=== PATIENT | male | born 1990 | race Hispanic/Latino ===

== ENCOUNTER 2017-11-01 14:07 | Emergency (ER) | payer SELFPAY ==
[2017-11-01] MEDS ORDERED: KETOROLAC TROMETHAMINE 30MG/ML ONE (15:09)
== END 2017-11-01 15:47 | disposition home or self-care (01) ==
LOC: EDH 14:07
DX: S09.8XXA Other specified injuries of head, initial encounter (principal); F12.10 Cannabis abuse, uncomplicated; Z72.0 Tobacco use; X58.XXXA Exposure to other specified factors, initial encounter; Y93.89 Activity, other specified; Y92.488 Other paved roadways as the place of occurrence of the external cause; Y99.8 Other external cause status; J01.00 Acute maxillary sinusitis, unspecified
CPT/HCPCS: 70450; 96372; 99284; J1885

== ENCOUNTER 2020-01-06 04:00 | Emergency (ER) | payer OTHER ==
[2020-01-06] MEDS ORDERED: AMOXICILLIN/POTASSIUM CLAV 500-125 TABLET PO ONE (04:34)
[2020-01-06] MEDS ORDERED: ACETAMINOPHEN EXTRA STRENGTH 500 MG TABLET ONE (04:34)
[2020-01-06] MEDS ORDERED: IBUPROFEN 400 MG TABLET ONE (04:34)
[2020-01-06] MEDS ORDERED: IBUPROFEN 200 MG TAB ONE (04:35)
== END 2020-01-06 04:50 ==
LOC: EDH 04:00
DX: J06.9 Acute upper respiratory infection, unspecified (principal); G89.29 Other chronic pain; M25.562 Pain in left knee; R51.9 Headache, unspecified